=== PATIENT | female | born 1980 | race Caucasian/White ===

== ENCOUNTER 2022-10-21 13:02 | Emergency (ER) | payer BC, SELFPAY ==
[2022-10-21 13:22] VITALS: BP 143/87; PULSE 94; RESP 16; TEMP 36.7; O2SAT 100
[2022-10-21 13:25] VITALS: BP 142/87
[2022-10-21 13:32] VITALS: BP 147/89
[2022-10-21 13:35] VITALS: BP 128/82; BP 130/80
--- NOTE | 2022-10-21 13:41 | ED.GENADULT ---
HPI - General Adult General Chief complaint: Unspecified Stated complaint: Blood Pressure Problem Time Seen by Provider: 10/21/22 13:41 History of Present Illness HPI narrative: PATIENT PRESENTS FOR BLOOD PRESSURE CHECK. PATIENT WAS SCHEDULED TO GO TO [facility] FOR BLOOD PRESSURE CHECK BUT THE FACILITY WAS CLOSED. PATIENT PRESENTS TODAY AFTER USING A NEW BLOOD PRESSURE MACHINE AT [facility] WHICH GAVE A READING OF 155/112. PATIENT RECENTLY LOST 60 LB AND HAS NOT BEEN ON BLOOD PRESSURE MEDICATION FOR THE LAST FEW DAYS. PATIENT DENIES ANY SIGNS OR SYMPTOMS OF HYPERTENSION WAS JUST HERE FOR A BLOOD PRESSURE CHECK. Related Data Home Medications Medication Instructions Recorded Confirmed tirzepatide 5 mg/0.5 mL mg subcut 10/21/22 subcutaneous pen injector (Mounjaro) Allergies Allergy/AdvReac Type Severity Reaction Status Date / Time No Known Allergies Allergy Verified 10/21/22 13:44 Review of Systems Review of Systems: CONSTITUTIONAL: DENIES FEVER, CHILLS, OR SWEATS. EYES: DENIES VISUAL CHANGES, REDNESS, OR DISCHARGE. ENT: DENIES RHINORRHEA, CONGESTION, SORE THROAT, OR OTALGIA. CARDIOVASCULAR: DENIES CHEST PAIN, PALPITATIONS, OR EDEMA. RESPIRATORY: DENIES COUGH OR DYSPNEA. GASTROINTESTINAL: DENIES ABDOMINAL PAIN, NAUSEA, VOMITING, OR DIARRHEA. GENITOURINARY: DENIES DYSURIA OR HEMATURIA. SKIN: DENIES RASH OR ITCHING. MUSCULOSKELETAL: DENIES BACK PAIN, JOINT PAIN, OR MYALGIA. NEUROLOGIC: DENIES HEADACHE, NUMBNESS, OR WEAKNESS. PSYCHIATRIC: DENIES ANXIETY OR DEPRESSION. PMFSH Comments AT TIME OF SIGNATURE, AGREE WITH NURSING PAST MEDICAL, SURGICAL, SOCIAL AND FAMILY HISTORY. THERE IS NO RELEVANT FAMILY HISTORY PERTINENT TO THE PRESENTING COMPLAINT Exam Narrative: GENERAL: WELL-APPEARING, WELL-NOURISHED, AND IN NO ACUTE DISTRESS. HEAD: NORMOCEPHALIC, ATRAUMATIC. EYES: PERRLA AND EOMI. ENT: NARES CLEAR, NO RHINORRHEA OR EPISTAXIS. MUCOUS MEMBRANES MOIST. NECK: SUPPLE. CHEST: CLEAR TO AUSCULTATION. NO RESPIRATORY DISTRESS. HEART: REGULAR RATE AND RHYTHM. NO MURMUR HEARD. NORMAL PERIPHERAL PULSES. ABDOMEN: SOFT, NONTENDER, NONDISTENDED, NORMAL ACTIVE BOWEL SOUNDS. EXTREMITIES: NORMAL RANGE OF MOTION. NO EDEMA. SKIN: WARM, DRY, NO RASH. NEURO: NO FOCAL DEFICITS. ALERT AND ORIENTED X3. RICHARD COMA SCALE EYE OPENING: SPONTANEOUS 4 RICHARD COMA SCALE MOTOR: OBEYS COMMANDS 6 RICHARD COMA SCALE VERBAL: ORIENTED 5 RICHARD COMA SCALE TOTAL 15 Course Course Level of Care: Express Care Visit Vital Signs Vital signs: Vital Signs Temperature 36.7 C 10/21/22 13:22 Pulse Rate 94 10/21/22 13:22 Respiratory Rate 16 10/21/22 13:22 Blood Pressure 143/87 H 10/21/22 13:22 Pulse Oximetry 100 10/21/22 13:22 Oxygen Delivery Room Air 10/21/22 13:22 Temperature 36.7 C 10/21/22 13:22 Pulse Rate 94 10/21/22 13:22 Respiratory Rate 16 10/21/22 13:22 Blood Pressure 147/89 H 10/21/22 13:32 Pulse Oximetry 100 10/21/22 13:22 Oxygen Delivery Room Air 10/21/22 13:22 PLEASE SHERIE SCHEDULE A FOLLOWUP VISIT WITH YOUR PERSONAL PHYSICIAN FOR FURTHER EVALUATION AND TREATMENT. INCLUDING RECHECK AND DISCUSSION OF YOUR BLOOD PRESSURE. IF YOUR SYMPTOMS PERSIST, CHANGE OR WORSEN SIGNIFICANTLY BEFORE YOU CAN CONTACT YOUR PERSONAL PHYSICIAN THEN PLEASE, WITHOUT DELAY, GO TO THE EMERGENCY DEPARTMENT FOR FURTHER EVALUATION Medical Decision Making Vital Signs Vital Signs: Vital Signs Temperature 36.7 C 10/21/22 13:22 Pulse Rate 94 10/21/22 13:22 Respiratory Rate 16 10/21/22 13:22 Blood Pressure 143/87 H 10/21/22 13:22 Pulse Oximetry 100 10/21/22 13:22 Oxygen Delivery Room Air 10/21/22 13:22 Temperature 36.7 C 10/21/22 13:22 Pulse Rate 94 10/21/22 13:22 Respiratory Rate 16 10/21/22 13:22 Blood Pressure 147/89 H 10/21/22 13:32 Pulse Oximetry 100 10/21/22 13:22 Oxygen Delivery Room Air 10/21/22 13:22 Discharge Plan Discharge Clinical Impression: Edvin
== END 2022-10-21 13:45 | disposition home or self-care (01) ==
PROVIDERS: Emergency Provider Nurse Practitioner Family; PCP Family Medicine
DX: Z71.1 Person with feared health complaint in whom no diagnosis is made (principal); E28.2 Polycystic ovarian syndrome
CPT/HCPCS: 99211; G0463